=== PATIENT | female | born 1980 ===

== ENCOUNTER 2016-12-25 21:46 | Emergency (ER) | payer SELFPAY ==
[2016-12-25 21:51] VITALS: BMI 24.7
[2016-12-25 21:53] VITALS: BP 143/81; RESP 16; TEMP 99.6; O2SAT 99
[2016-12-25 22:37] LABS: BASO % 0.4 % (0.0-2.0); EOS # 0.1 K/uL (0.0-0.7); EOS % 1.3 % (0.0-4.0); LYMPH # 3.1 K/uL (1.0-4.3); LYMPH % 35.1 % (20.0-40.0); MEAN CELL VOLUME 83.9 fl (81.0-99.0); MEAN CORPUSCULAR HEMOGLOBIN 28.3 pg (27.0-31.0); MEAN CORPUSCULAR HGB CONC 33.7 g/dL (33.0-37.0); MEAN PLATELET VOLUME 7.4 fl (7.2-11.7); MONO # 0.6 K/uL (0.0-0.8); NEUT % 56.2 % (50.0-75.0); RED CELL DISTRIBUTION WIDTH 13.3 % (11.5-14.5); WHITE BLOOD COUNT 8.9 K/uL (4.8-10.8)
[2016-12-25 22:41] LABS: RBC URINE 1 /hpf (0-3); URINE BACTERIA RARE (<OCC); URINE BILIRUBIN NEGATIVE (NEGATIVE); URINE BLOOD SMALL (NEGATIVE); URINE COLOR STRAW (YELLOW); URINE GLUCOSE (UA) NEG (Normal); URINE KETONE NEGATIVE (NEGATIVE); URINE LEUKOCYTE ESTERASE NEG Leu/uL (Negative); URINE PROTEIN NEGATIVE (NEGATIVE); URINE UROBILINOGEN 0.2-1.0 mg/dL (0.2-1.0); WBC URINE 1 /hpf (0-5)
--- NOTE | 2016-12-25 22:46 | ED PDOC ---
HPI: Chest Pain Time Seen by Provider: 12/25/16 21:56 Chief Complaint (Nursing): Chest Pain Chief Complaint (Provider): Chest Pain History Per: Patient History/Exam Limitations: no limitations Onset/Duration Of Symptoms: Hrs (x 8 hours) Current Symptoms Are (Timing): Still Present Additional Complaint(s): Wen is a 35 y/o female with a past medical history of dyslipidemia, who presents to the ED with intermittent chest pain since 2:30PM. States she had a momentary episode of chest pain which resolved and then a second episode prior to arrival lasting for 1 hour. Patient reports no pain at present. Denies any associated nausea, vomiting, shortness of breath, or diaphoresis. States pain was worsened with deep inspiration. No recent travel. PMD: Unknown Past Medical History Reviewed: Historical Data, Nursing Documentation, Vital Signs Vital Signs: Last Vital Signs Temp 99.6 F 12/25/16 21:51 Pulse 91 H 12/25/16 21:51 Resp 16 12/25/16 21:51 BP 143/81 12/25/16 21:51 Pulse Ox 99 12/25/16 22:49 - Medical History PMH: Gastritis, Gall Bladder Disease, Hypercholesterolemia, Hypothyroidism Denies: Chronic Kidney Disease - Surgical History Surgical History: Cholecystectomy, (x3) - Family History Family History: States: Unknown Family Hx - Social History Current smoker - smoking cessation education provided: No Alcohol: None Drugs: Denies - Home Medications Home Medications: Ambulatory Orders Medication Instructions Recorded Ibuprofen [Motrin Tab] 200 mg PO DAILY PRN 03/01/16 Ibuprofen [Motrin] 600 mg PO TID 7 Days 03/01/16 Omeprazole 20 mg PO DAILY 03/01/16 - Allergies Allergies/Adverse Reactions: Allergies Allergy/AdvReac Type Severity Reaction Status Date / Time No Known Allergies Allergy Verified 12/25/16 21:51 Review of Systems ROS Statement: Except As Marked, All Systems Reviewed And Found Negative Cardiovascular: Positive for: Chest Pain. Negative for: Other (Diaphoresis) Respiratory: Negative for: Shortness of Breath Gastrointestinal: Negative for: Nausea, Vomiting Physical Exam - Reviewed Nursing Documentation Reviewed: Yes Vital Signs Reviewed: Yes - Physical Exam Appears: Positive for: Non-toxic, No Acute Distress Head Exam: Positive for: ATRAUMATIC, NORMAL INSPECTION, NORMOCEPHALIC Skin: Positive for: Normal Color, Warm, Dry Eye Exam: Positive for: EOMI, Normal appearance, PERRL Neck: Positive for: Normal, Painless ROM, Supple Cardiovascular/Chest: Positive for: Regular Rate, Rhythm. Negative for: Murmur Respiratory: Positive for: Normal Breath Sounds. Negative for: Accessory Muscle Use, Respiratory Distress Gastrointestinal/Abdominal: Positive for: Normal Exam, Soft. Negative for: Tenderness Back: Positive for: Normal Inspection. Negative for: Vertebral Tenderness Extremity: Positive for: Normal ROM, Capillary Refill (< 2 sec). Negative for: Pedal Edema, Deformity Neurologic/Psych: Positive for: Alert, Oriented. Negative for: Motor/Sensory Deficits - Laboratory Results Result Diagrams: 12/25/16 22:34 12/25/16 22:34 - ECG ECG Rhythm: Positive for: Normal ST Segment, Sinus Rhythm. Negative for: ST/T Changes Rate: 96 (taken at 2153) O2 Sat by Pulse Oximetry: 99 (RA) Pulse Ox Interpretation: Normal Medical Decision Making Medical Decision Making: Time: 22:19 Initial Impression: 35 y/o female with chest pain Initial Plan: --CMP --Troponin I --CBC --Urine --ED Urine dipstick --EKG --CXR --Urinalysis --Pending reevaluation and disposition 2329 Labs reviewed: no clinically significant abnormalities CXR: NAD Patient has had no chest pain for duration of ED visit and is stable for discharge. Dx: atypical chest pain Patient was advised to take ibuprofen as needed and to follow up with clinic. Scribe Attestation: Documented by Lupe Alexander, acting as a scribe for Timoteo Linares MD Provider Scribe Attestation: All medical record entries made by the Scribe were at my direction and personally dictated by me. I have reviewed the chart and agree that the record accurately reflects my personal performance of the history, physical exam, medical decision making, and the department course for this patient. I have also personally directed, reviewed, and agree with the discharge instructions and disposition. Disposition - Clinical Impression Clinical Impression: Atypical chest pain Counseled Patient/Family Regarding: Studies Performed, Diagnosis - Disposition Disposition: Routine/Home Disposition Time: 23:29 Condition: STABLE Instructions: Noncardiac Chest Pain (ED) Forms: [facility] (Thai) Print Language: ALBANIAN
[2016-12-25 22:56] LABS: ALB/GLOB RATIO 1.3 (1.0-2.1); ALKALINE PHOSPHATASE 40 U/L (38-126); ALT/SGPT 29 U/L (9-52); AST/SGOT 26 U/L (14-36); BLOOD UREA NITROGEN 10 mg/dl (7-17); CALCIUM 9.7 mg/dL (8.4-10.2); CARBON DIOXIDE 23 mmol/L (22-30); CHLORIDE 103 mmol/L (98-107); GFR AFRICAN-AMERICAN > 60; GLUCOSE,RANDOM 101 mg/dL (65-105); POTASSIUM 3.8 MMOL/L (3.6-5.0); SODIUM 140 mmol/l (132-148); TOTAL PROTEIN 8.5 G/DL (6.3-8.2)
[2016-12-25 23:31] VITALS: PULSE 96
--- NOTE | 2016-12-26 08:50 | RAD ---
HISTORY: chest pain COMPARISON: Chest radiographs 07/19/2016 FINDINGS: LUNGS: No active pulmonary disease. PLEURA: No significant pleural effusion identified, no pneumothorax apparent. CARDIOVASCULAR: Normal. OSSEOUS STRUCTURES: No significant abnormalities. VISUALIZED UPPER ABDOMEN: Normal. OTHER FINDINGS: None. IMPRESSION: No acute cardiopulmonary disease or significant interval change identified compared to 07/19/2016.
--- NOTE | 2016-12-26 21:41 | CARD ---
APPROVED REPORT EKG Measurement Heart [id number] <Conclusion> Normal sinus rhythm Normal ECG
== END 2016-12-25 23:40 | disposition home or self-care (01) ==
LOC: H.ER 21:46
DX: R07.89 Other chest pain (principal); E03.9 Hypothyroidism, unspecified; E78.5 Hyperlipidemia, unspecified

== ENCOUNTER 2018-05-03 15:22 | Emergency (ER) | payer MEDICAID ==
[2018-05-03 15:22] VITALS: BMI 24.7
[2018-05-03 16:06] VITALS: RESP 16
[2018-05-03 19:14] LABS: BASO % 0.4 % (0.0-2.0); EOS # 0.1 K/uL (0.0-0.7); EOS % 1.3 % (0.0-4.0); HEMOGLOBIN 11.2 g/dL (12.0-16.0); LYMPH # 1.3 K/uL (1.0-4.3); LYMPH % 15.1 % (20.0-40.0); MEAN CELL VOLUME 81.8 fl (81.0-99.0); MEAN CORPUSCULAR HEMOGLOBIN 27.2 pg (27.0-31.0); MEAN CORPUSCULAR HGB CONC 33.3 g/dL (33.0-37.0); MEAN PLATELET VOLUME 7.1 fl (7.2-11.7); MONO # 0.6 K/uL (0.0-0.8); MONO % 6.5 % (0.0-10.0); NEUT # 6.8 K/uL (1.8-7.0); NEUT % 76.7 % (50.0-75.0); RBC 4.1 Mil/uL (3.80-5.20); RED CELL DISTRIBUTION WIDTH 13.1 % (11.5-14.5); WHITE BLOOD COUNT 8.9 K/uL (4.8-10.8)
[2018-05-03 19:35] LABS: BLOOD UREA NITROGEN 8 mg/dl (7-17); GFR NON-AFRICAN AMERICAN > 60
--- NOTE | 2018-05-03 20:09 | ED PDOC ---
HPI: Headache Time Seen by Provider: 05/03/18 17:10 Chief Complaint (Nursing): Headache Chief Complaint (Provider): Neck Pain History/Exam Limitations: no limitations Onset/Duration Of Symptoms: Days (x5) Current Symptoms Are (Timing): Still Present Additional Complaint(s): Patient is a 37 y/o female with a PMHx of hypercholesterolemia, hypothyroidism, gastritis, and gall bladder disease who presents to the ED for evaluation of right-sided neck pain. Patient reports one week ago, she visited her PCP for a general check up when she felt a lump/mass on the right side of her neck. A thyroid US was performed five days ago. Since then the mass has continued to grow. The patient has also been developing increasing neck pain radiating into the ear on the right side of the face. Since yesterday patient has been experiencing a mild cough, sore throat, fever, chills, and sweats. In addition, the patient admits to dry skin. Patient also has been able to eat and drink normally. However, the patient denies blurriness, double vision, changes in menstruation, or palpitations. PCP: Dr. Caden Barrios Past Medical History Reviewed: Historical Data, Nursing Documentation, Vital Signs Vital Signs: Last Vital Signs Temp 99.9 F H 05/03/18 16:03 Pulse 108 H 05/03/18 16:03 Resp 16 05/03/18 16:03 BP 120/77 05/03/18 16:03 Pulse Ox 100 05/03/18 16:03 - Medical History PMH: Gastritis, Gall Bladder Disease, Hypercholesterolemia, Hypothyroidism Denies: Chronic Kidney Disease - Surgical History Surgical History: Cholecystectomy, (x3) - Family History Family History: States: Unknown Family Hx - Home Medications Home Medications: Ambulatory Orders Medication Instructions Recorded Ibuprofen [Motrin Tab] 200 mg PO DAILY PRN 03/01/16 Ibuprofen [Motrin] 600 mg PO TID 7 Days tab 03/01/16 Omeprazole 20 mg PO DAILY 03/01/16 Cyclobenzaprine [Cyclobenzaprine 10 mg PO Q8 PRN 5 Days tab 05/03/18 HCl] Ibuprofen [Motrin Tab] 600 mg PO Q6 PRN 7 Days tab 05/03/18 - Allergies Allergies/Adverse Reactions: Allergies Allergy/AdvReac Type Severity Reaction Status Date / Time No Known Allergies Allergy Verified 05/03/18 16:03 Review of Systems ROS Statement: Except As Marked, All Systems Reviewed And Found Negative Constitutional: Positive for: Fever, Chills, Sweats, Other (Coldness) ENT: Positive for: Throat Pain (Sore). Negative for: Other (Blurriness, Double Vision) Cardiovascular: Negative for: Palpitations Respiratory: Positive for: Cough (Mild) Genitourinary Female: Negative for: Other (Changes in Menstruation) Musculoskeletal: Positive for: Neck Pain (Right-sided) Neurological: Positive for: Weakness, Other ([place] Disturbance) Physical Exam - Reviewed Nursing Documentation Reviewed: Yes (Swelling on Right) Vital Signs Reviewed: Yes - Physical Exam Appears: Positive for: No Acute Distress Head Exam: Positive for: ATRAUMATIC, NORMAL INSPECTION, NORMOCEPHALIC Skin: Positive for: Normal Color, Dry Eye Exam: Positive for: Normal appearance, EOMI ENT: Positive for: Normal ENT Inspection, Other (No Tongue Deviation; Thyroid Enlarged) Neck: Positive for: Normal (4.5-5 cm Swelling on Right Side). Negative for: Decreased ROM, Limited ROM Cardiovascular/Chest: Positive for: Regular Rate, Rhythm Respiratory: Positive for: Normal Breath Sounds Gastrointestinal/Abdominal: Positive for: Normal Exam Extremity: Positive for: Normal ROM, Other (Sensation to light touch of upper and lwoer extremity intact) Neurologic/Psych: Positive for: Alert, Oriented. Negative for: Facial Droop (Smile is Symmetric) - Laboratory Results Result Diagrams: 05/03/18 19:11 05/03/18 19:11 - ECG O2 Sat by Pulse Oximetry: 100 (RA) Pulse Ox Interpretation: Normal Medical Decision Making Medical Decision Making: Time: 1838 Plan: CT Neck Soft Tissue w/o Contrast BMP Uring CBC Flexeril 10 mg PO Toradol 30 mg IM Toradol 30 mg IM Throat Culture IV Insertion (Sal[place]) Rapid Strep Group A Antigen Time: 2055 CT Neck Soft Tissue w/o Contrast FINDINGS: PHARYNX: Unremarkable appearance of the nasopharynx, oropharyx, and hypopharynx. No pharyngeal mucosal based mass lesions. LARYNX: Normal appearance of the larynx. Unremarkable epiglottis. RETROPHARYNGEAL SPACE: The retropharyngeal soft tissues appear within normal limits. SALIVARY GLANDS: No salivary gland abnormality evident. Unremarkable appearance of the parotid, submandibular, and sublingual glands. LYMPH NODES: Numerous small bilateral jugular, submandibular and posterior triangle lymph nodes present, nonspecific probably reactive. THYROID: 1.7 x 1.2 cm right thyroid lobe nodule is noted follow-up with thyroid ultrasound is recommended. BONES: No aggressive appearing osseous lesion. No acute osseous abnormality. IMPRESSION: 1. 1.7 x 1.2 cm right thyroid lobe nodule is noted follow-up with thyroid ultrasound is recommended. 2. Numerous small bilateral jugular, submandibular and posterior triangle lymph nodes present, nonspecific probably reactive. Electronically signed on May 03, 2018 8:56:11 PM EST by: Luca Wilde M.D., FAIZAN Certified By [facility] Fellowship Trained MRI and CT Specialist Thyroid U/S 04/28/18: markedly heterogeneous gland with no focal abnormality. Speicfically no nodules identified. Scribe Attestation: Documented by Isaak Benito, acting as a scribe for Amanda BISHOP. Provider Scribe Attestation: All medical record entries made by the Scribe were at my direction and personally dictated by me. I have reviewed the chart and agree that the record accurately reflects my personal performance of the history, physical exam, medical decision making, and the department course for this patient. I have also personally directed, reviewed, and agree with the discharge instructions and disposition. Patient re-evaluated prior to discharge. Pain has improved. Patient advised to f/u with primary care doctor re: thyroid gland f/u. Patient demonstrated under standing. Disposition - Clinical Impression Clinical Impression: Cluster headache - Patient ED Disposition Is Patient to be Admitted: No Counseled Patient/Family Regarding: Studies Performed, Diagnosis, Need For Followup - Disposition Referrals: Caden Barrios MD [Family Provider] - Disposition: Routine/Home Disposition Time: 22:40 Condition: STABLE Additional Instructions: F/u with Dr. Barrios re: thyroid ultrasound results and further evaluation. Take Flexeril and Ibuprofen for neck muscle/headache. Return to ER if you develop trouble with your vision, weakness on one side of your body or difficulty swallowing. Prescriptions: Cyclobenzaprine [Cyclobenzaprine HCl] 10 mg PO Q8 PRN 5 Days tab PRN Reason: Pain, Moderate (4-7) Ibuprofen [Motrin Tab] 600 mg PO Q6 PRN 7 Days tab PRN Reason: Pain, Moderate (4-7) Instructions: Cluster Headache (DC) Forms: [facility] (Pashto) Print Language: KYRGYZ
[2018-05-03 22:34] VITALS: BP 113/55; PULSE 97; TEMP 98.3
--- NOTE | 2018-05-04 15:02 | CT ---
Date of service: 05/03/2018 PROCEDURE: CT NECK WITHOUT CONTRAST HISTORY: evaluate growing Right neck COMPARISON: Thyroid ultrasound 04/28/2018. TECHNIQUE: CT of the neck without intravenous contrast. Coronal and sagittal reformats generated. Radiation dose: Total exam DLP = 281.05 mGy-cm. This CT exam was performed using one or more of the following dose reduction techniques: Automated exposure control, adjustment of the mA and/or kV according to patient size, and/or use of iterative reconstruction technique. FINDINGS: CT of the supra and infrahyoid neck is remarkable for an unremarkable appearing pharynx and hypopharynx as well as larynx and oral cavity. The lack of intravenous contrast limits sensitivity in this unenhanced neck CT. The glottis is unremarkable and shotty jugular digastric lymph nodes identified bilaterally as well. GLANDS: Parotid and submandibular glands unremarkable. The thyroid gland is heterogeneous in density with what appears to be a hypodense lesion occupying the vast majority of the right lobe with left lobe obscured by artifact from beam hardening related to the clavicles. Based on prior thyroid ultrasound 04/28/2018, consideration of tissue diagnosis recommended for right-sided thyroid lobe findings. Nuclear thyroid scan is also an option. LYMPH NODES: Normal. No lymphadenopathy. CERVICAL SPINE: No fracture or focal lesion. OTHER FINDINGS: Incidental 3 mm scar or nodule right apex for which follow-up chest is advised in 12 months demonstrate stability. IMPRESSION: Right thyroid lobe mass suspected. Consider tissue diagnosis on elective basis by either ultrasound-guided FNA or core biopsy. Incidental 3 mm scar or nodule right apex for which follow-up chest is advised in 12 months demonstrate stability. Concordant preliminary report from [facility], 05/03/2018 8:56 p.m..
[2018-05-18 15:48] VITALS: O2SAT 100
== END 2018-05-03 22:40 | disposition home or self-care (01) ==
LOC: H.ER 15:22
DX: G44.009 Cluster headache syndrome, unspecified, not intractable (principal); E03.9 Hypothyroidism, unspecified; E78.00 Pure hypercholesterolemia, unspecified
CPT/HCPCS: 70490; 80048; 81025; 85025; 87070; 87430; 96374; 99283; J1885